=== PATIENT | male | born 1980 | race Caucasian/White ===

== ENCOUNTER 2020-04-29 20:38 | Emergency (ER) | payer OTHER ==
[~2020-04-29] VITALS: Ht 167.6 cm; Wt 83.9 kg
[2020-04-29 22:30] VITALS: BP 144/89
== END 2020-04-29 22:32 | disposition home or self-care (01) ==
LOC: M.ERS 20:38
DX: S01.81XA Laceration without foreign body of other part of head, initial encounter (principal); W20.8XXA Other cause of strike by thrown, projected or falling object, initial encounter; Y93.89 Activity, other specified; Y92.89 Other specified places as the place of occurrence of the external cause; Y99.8 Other external cause status